=== PATIENT | male | born 1990 ===

== ENCOUNTER 2021-07-25 11:00 | Emergency (ER) | payer SELFPAY ==
[2021-07-25] MEDS ORDERED: IBUPROFEN 800 MG TAB PO STA (12:09)
[2021-07-25] MEDS ORDERED: oxyCODONE /ACETAMINOPHEN 5-325MG TAB PO ONE (12:09)
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
[2021-07-25] MEDS ORDERED: TETANUS,DIPH,PERTUSS(ACELL) VACCINE 0.5 ML SYRINGE IM ONE (12:23)
[2021-07-25 13:14] VITALS: BP 108/57
== END 2021-07-25 13:17 | disposition home or self-care (01) ==
LOC: ED 11:00
DX: T24.202A Burn of second degree of unspecified site of left lower limb, except ankle and foot, initial encounter (principal); X19.XXXA Contact with other heat and hot substances, initial encounter; Y93.89 Activity, other specified; Y92.89 Other specified places as the place of occurrence of the external cause; Y99.8 Other external cause status
CPT/HCPCS: 90471; 90715; 99282